=== PATIENT | male | born 1945 | race Asian ===

== ENCOUNTER 2022-07-06 13:21 | Emergency (ER) | payer OTHER ==
[~2022-07-06] VITALS: Ht 167.6 cm; Wt 59.0 kg
[2022-07-06 19:30] VITALS: BP 139/80
[2022-07-07] MEDS ORDERED: HYDR12.55 PO ×2 (03:14→14:37)
[2022-07-07] MEDS ORDERED: ATOR10TA PO (03:14)
[2022-07-07] MEDS ORDERED: METF-867 PO (03:14)
--- NOTE | 2022-07-07 03:30 | NUR ---
Patient discharged to home in stable condition. Written and verbal after care instructions given. Patient/family verbalizes understanding of instruction.
[2022-07-07] MEDS ORDERED: METF-442 MT (14:34)
[2022-07-07] MEDS ORDERED: ATOR40TA PO (14:37)
[2022-07-07] MEDS ORDERED: PIOG45TA5 PO (14:37)
== END 2022-07-07 03:53 | disposition home or self-care (01) ==
LOC: ER 13:23
DX: S29.012A Strain of muscle and tendon of back wall of thorax, initial encounter (principal); W19.XXXA Unspecified fall, initial encounter; Y93.01 Activity, walking, marching and hiking; Y92.89 Other specified places as the place of occurrence of the external cause; Y99.8 Other external cause status